=== PATIENT | female | born 1945 | race Two or more races ===

== ENCOUNTER 2018-01-05 11:43 | Emergency (ER) | payer MEDICARE, MEDICAID ==
[~2018-01-05] VITALS: Ht 152.4 cm; Wt 72.6 kg
[2018-01-05] MEDS ORDERED: LOSA50TA21 PO (11:53)
[2018-01-05] MEDS ORDERED: ONDANSETRON ODT 4 MG TAB.RAPDIS SL ONE (12:00)
[2018-01-05] MEDS ORDERED: MORPHINE SULFATE 2 MG/1 ML DISP.SYRIN IV ONE (12:00)
[2018-01-05] MEDS ORDERED: MORPHINE SULFATE 2 MG/1 ML DISP.SYRIN ONE (12:05)
[2018-01-05] MEDS ORDERED: ONDANSETRON 4 MG/2 ML VIAL ONE (12:05)
[2018-01-05 12:11] LABS: BASOPHILS # (AUTO) 0.1 K/uL (0.0-8.0); BASOPHILS % (AUTO) 0.5 % (0.0-2.0); EOSINOPHILS % (AUTO) 0.2 % (0.0-7.0); HEMATOCRIT 37.9 % (31.2-41.9); HEMOGLOBIN 12.7 g/dL (10.9-14.3); LYMPHOCYTES # (AUTO) 2.5 K/uL (20.0-40.0); LYMPHOCYTES % (AUTO) 23.6 % (20.5-51.5); MEAN CORPUSCULAR HEMOGLOBIN 29.3 uug (24.7-32.8); MEAN CORPUSCULAR HGB CONC 34 g/dL (32.3-35.6); MEAN CORPUSCULAR VOLUME 87.3 fL (75.5-95.3); MONOCYTES # (AUTO) 1.3 K/uL (2.0-10.0); MONOCYTES % (AUTO) 12.6 % (0.0-11.0); NEUTROPHILS # (AUTO) 6.6 K/uL (1.8-8.9); NEUTROPHILS % (AUTO) 63.1 % (38.5-71.5); PLATELET COUNT (AUTO) 175 K/uL (179-408); RED BLOOD CELL COUNT(AUTO) 4.34 MIL/uL (3.63-4.92); WHITE BLOOD COUNT (AUTO) 10.5 K/uL (3.8-11.8)
--- NOTE | 2018-01-05 12:18 | NUR ---
PT IS IN ROOM #1B. DR GILES EVALUATED THE PT.
[2018-01-05 12:31] LABS: BILIRUBIN,DIRECT 0.2 mg/dL (0.0-0.2); BILIRUBIN,TOTAL 0.8 mg/dL (0.2-1.0); TOTAL PROTEIN, SERUM 7.9 g/dL (6.4-8.2)
--- NOTE | 2018-01-05 13:11 | NUR ---
PT WAS D/C TO HOME. D/C INSTRUCTIONS GIVEN TO THE PT.
[2018-01-05 13:12] VITALS: BP 139/81
== END 2018-01-05 13:13 | disposition home or self-care (01) ==
LOC: ER 11:45
DX: M75.31 Calcific tendinitis of right shoulder (principal); R07.89 Other chest pain
CPT/HCPCS: 36415; 71045; 73030; 80048; 80076; 83880; 84484; 85025; 93005; 96374; 99284; J2270; J2405; 70030-TC; A4663

== ENCOUNTER 2018-10-27 22:07 | Inpatient (IN) | payer MEDICARE, MEDICAID ==
[~2018-10-27] VITALS: Ht 162.6 cm; Wt 66.2 kg
[~2018-10-27 22:07] MED LIST: LOSA50TA39 PO
[2018-10-27 22:44] LABS: BASOPHILS % (AUTO) 0.6 % (0.0-2.0); EOSINOPHILS # (AUTO) 0.1 K/uL (0.0-0.7); EOSINOPHILS % (AUTO) 1.3 % (0.0-7.0); HEMATOCRIT 22.8 % (31.2-41.9); HEMOGLOBIN 7.7 g/dL (10.9-14.3); LYMPHOCYTES # (AUTO) 1.5 K/uL (20.0-40.0); LYMPHOCYTES % (AUTO) 21.7 % (20.5-51.5); MEAN CORPUSCULAR HEMOGLOBIN 28.1 uug (24.7-32.8); MEAN CORPUSCULAR HGB CONC 34 g/dL (32.3-35.6); MEAN CORPUSCULAR VOLUME 83.4 fL (75.5-95.3); MONOCYTES # (AUTO) 0.9 K/uL (2.0-10.0); NEUTROPHILS # (AUTO) 4.4 K/uL (1.8-8.9); NEUTROPHILS % (AUTO) 63.4 % (38.5-71.5); PLATELET COUNT (AUTO) 306 K/uL (179-408); RED BLOOD CELL COUNT(AUTO) 2.73 MIL/uL (3.63-4.92)
--- NOTE | 2018-10-27 22:46 | NUR ---
RECTAL EXAM DONE BY TYLOR CHAPERONED BY RN PROVIDED PRIVACY AND SAFETY
[2018-10-27 22:52] LABS: POTASSIUM 3.6 mmol/L (3.5-5.1)
[2018-10-27 23:00] LABS: BILIRUBIN,DIRECT 0.1 mg/dL (0.0-0.2); BILIRUBIN,TOTAL 0.4 mg/dL (0.2-1.0); TOTAL PROTEIN, SERUM 6.8 g/dL (6.4-8.2)
[2018-10-28] VITALS (14 sets, daily range): BP systolic 116–143; BP diastolic 59–81
--- NOTE | 2018-10-28 00:37 | NUR ---
INSTRUCTED TO CALL [facility] DR LEO POLLARD IS DIRECTOR CHILD ABUSE THERAPY WAITING FOR CALL BACK
--- NOTE | 2018-10-28 01:13 | NUR ---
CALL FOR [facility] BED DONE PT WILL BE ADMITTED UNDER DR. LEO POLLARD DX BLOODY STOOL +HEMORRHOID
[2018-10-28] MEDS ORDERED: IRON1TAB96 PO (01:17)
[2018-10-28] MEDS ORDERED: FOLI1TAB16 PO (01:21)
--- NOTE | 2018-10-28 01:40 | NUR ---
HAND OFF AND SBAR GIVEN TO KATIE RN PT TRANSPORTED VIA GURNEY WITH SIDERAILS X2 UP BED AT LOWEST POSITION IV SALINE LOCK TO LEFT DORSAL HAND G20 INTACT
[2018-10-28] MEDS ORDERED: HYDROCODONE/APAP 5-325MG TABLET PO PRN (01:45)
[2018-10-28] MEDS ORDERED: ONDANSETRON 4 MG/2 ML VIAL IV PRN (01:45)
[2018-10-28] MEDS ORDERED: MAGNESIUM HYDROXIDE 30 ML LIQUID UDC PO PRN (01:45)
[2018-10-28] MEDS ORDERED: Z GUARD REMEDY PASTE 57 GM TUBE TOP PRN (01:45)
[2018-10-28] MEDS ORDERED: ACETAMINOPHEN 325 MG TABLET PO PRN (01:45)
--- NOTE | 2018-10-28 02:20 | NUR ---
patient received on reading [facility]. a/ox4. no signs of acute distress. v/s stable. safety and comfort measures provided. IV intact and patent. ID band on. Belongings list completed by ER. will continue plan of care.
[2018-10-28] MEDS: IV NS 1000 ML 1,000 ML IV PRN (02:24)
--- NOTE | 2018-10-28 05:10 | NUR ---
DR LEO POLLARD CALLED BACK ON THE PHONE WITH [facility]
[2018-10-28] MEDS: PANTOPRAZOLE SODIUM 40 MG VIAL IV SCH (08:41)
[2018-10-28] MEDS: LOSARTAN POTASSIUM 50 MG TABLET PO SCH ×2 (08:41→17:19)
[2018-10-28 09:55] LABS: BASOPHILS % (AUTO) 0.8 % (0.0-2.0); EOSINOPHILS # (AUTO) 0.1 K/uL (0.0-0.7); EOSINOPHILS % (AUTO) 1.8 % (0.0-7.0); LYMPHOCYTES # (AUTO) 1.1 K/uL (20.0-40.0); LYMPHOCYTES % (AUTO) 22.5 % (20.5-51.5); MEAN CORPUSCULAR HEMOGLOBIN 27.1 uug (24.7-32.8); MEAN CORPUSCULAR HGB CONC 32 g/dL (32.3-35.6); MEAN CORPUSCULAR VOLUME 83.5 fL (75.5-95.3); MONOCYTES # (AUTO) 0.5 K/uL (2.0-10.0); MONOCYTES % (AUTO) 10.2 % (0.0-11.0); NEUTROPHILS % (AUTO) 64.7 % (38.5-71.5); PLATELET COUNT (AUTO) 258 K/uL (179-408); WHITE BLOOD COUNT (AUTO) 4.7 K/uL (3.8-11.8)
[2018-10-28 09:57] LABS: IRON, SERUM 8 ug/dL (50-175)
[2018-10-28 10:00] LABS: BILIRUBIN,TOTAL 0.4 mg/dL (0.2-1.0); CREATININE 0.9 mg/dL (0.6-1.3); MAGNESIUM 2.1 mg/dL (1.8-2.4); PHOSPHOROUS 2.8 mg/dL (2.5-4.9); POTASSIUM 4.2 mmol/L (3.5-5.1); TOTAL PROTEIN, SERUM 5.8 g/dL (6.4-8.2)
[2018-10-28 10:03] LABS: THYROID STIMULATING HORMONE 3.598 mIU/mL (0.358-3.740)
[2018-10-28 10:05] LABS: RED BLOOD CELL COUNT(AUTO) 2.43 MIL/uL (3.63-4.92)
[2018-10-28 10:10] LABS: HEMATOCRIT 20.3 % (31.2-41.9); HEMOGLOBIN 6.6 g/dL (10.9-14.3)
[2018-10-28 10:21] LABS: BAND % (MANUAL) 1 % (0-10); EOSINOPHILS % (MANUAL) 3 % (0-8); LYMPHOCYTES % (MANUAL) 21 % (20-40); MONOCYTES % (MANUAL) 10 % (2-10); NEUTROPHILS % (MANUAL) 65 % (42-75)
[2018-10-28 13:27] LABS: EOSINOPHILS # (AUTO) 0.1 K/uL (0.0-0.7); MONOCYTES # (AUTO) 0.5 K/uL (2.0-10.0); PLATELET COUNT (AUTO) 265 K/uL (179-408)
[2018-10-28 13:43] LABS: EOSINOPHILS % (AUTO) 1.9 % (0.0-7.0); LYMPHOCYTES % (AUTO) 20.1 % (20.5-51.5); MEAN CORPUSCULAR HEMOGLOBIN 26.4 uug (24.7-32.8); MEAN CORPUSCULAR HGB CONC 32 g/dL (32.3-35.6); MONOCYTES % (AUTO) 10.3 % (0.0-11.0); NEUTROPHILS # (AUTO) 3.5 K/uL (1.8-8.9); NEUTROPHILS % (AUTO) 66.7 % (38.5-71.5); WHITE BLOOD COUNT (AUTO) 5.2 K/uL (3.8-11.8)
[2018-10-28 13:47] LABS: RED BLOOD CELL COUNT(AUTO) 2.49 MIL/uL (3.63-4.92)
[2018-10-28 13:51] LABS: HEMATOCRIT 20.7 % (31.2-41.9); HEMOGLOBIN 6.6 g/dL (10.9-14.3)
[2018-10-28] MEDS ORDERED: GOLYTELY 4000 ML BOTTLE PO ONE (15:45)
[2018-10-28 17:26] LABS: *BILIRUBIN,URIN NEGATIVE (NEGATIVE); *BLOOD, URINE 2+ (NEGATIVE); *COLOR,URINE LIGHT YELLOW (YELLOW); *KETONES,URINE NEGATIVE (NEGATIVE); *UROBILINOGEN,URINE 0.2 E.U./dl (NORMAL); LEUKOCYTE ESTERASE ,URINE TRACE (NEGATIVE); NITRITE, URINE NEGATIVE (NEGATIVE); UGLUCOSE NEGATIVE (NEGATIVE)
[2018-10-28 17:32] LABS: *CLARITY,URINE SLIGHTLY HAZY (CLEAR)
[2018-10-28 17:34] LABS: BACTERIA,URINE FEW /HPF (NONE SEEN); SQUAMOUS EPITHELIAL CELL,UR MODERATE /HPF (NONE SEEN)
[2018-10-28] MEDS ORDERED: MAGNESIUM CITRATE 296 ML BOTTLE PO ONE (17:45)
[2018-10-28] MEDS ORDERED: FLEET ENEMA 133 ML BOTTLE RC ONE (17:45)
[2018-10-29 00:52] LABS: BASOPHILS % (AUTO) 0.2 % (0.0-2.0); EOSINOPHILS # (AUTO) 0.1 K/uL (0.0-0.7); EOSINOPHILS % (AUTO) 2.1 % (0.0-7.0); HEMATOCRIT 26.1 % (31.2-41.9); HEMOGLOBIN 8.6 g/dL (10.9-14.3); LYMPHOCYTES # (AUTO) 1.7 K/uL (20.0-40.0); LYMPHOCYTES % (AUTO) 24.5 % (20.5-51.5); MEAN CORPUSCULAR HEMOGLOBIN 27.3 uug (24.7-32.8); MEAN CORPUSCULAR HGB CONC 33 g/dL (32.3-35.6); MONOCYTES # (AUTO) 0.8 K/uL (2.0-10.0); MONOCYTES % (AUTO) 12.1 % (0.0-11.0); NEUTROPHILS # (AUTO) 4.2 K/uL (1.8-8.9); NEUTROPHILS % (AUTO) 61.1 % (38.5-71.5); PLATELET COUNT (AUTO) 274 K/uL (179-408); RED BLOOD CELL COUNT(AUTO) 3.15 MIL/uL (3.63-4.92); WHITE BLOOD COUNT (AUTO) 6.8 K/uL (3.8-11.8)
--- NOTE | 2018-10-29 04:58 | NUR ---
patient received at beginning of shift with 1 unit of blood transfusing. transfusion completed with no adverse reactions. lungs clear and v/s stable. consent for EGD and coloscopy signed. Peg administered and tolerated well. safety and comfort measures provided at all times. no signs of acute distress and v/s stable at this time. will continue to monitor and endorse care accordingly to morning nurse.
[2018-10-29 05:04] VITALS: BP 129/81
[2018-10-29] MEDS: IV NS 1000 ML 1,000 ML IV PRN ×2 (05:10→15:51)
[2018-10-29 06:44] LABS: BASOPHILS % (AUTO) 0.6 % (0.0-2.0); EOSINOPHILS # (AUTO) 0.1 K/uL (0.0-0.7); EOSINOPHILS % (AUTO) 1.1 % (0.0-7.0); HEMATOCRIT 24.6 % (31.2-41.9); LYMPHOCYTES # (AUTO) 1.5 K/uL (20.0-40.0); LYMPHOCYTES % (AUTO) 19.4 % (20.5-51.5); MEAN CORPUSCULAR HEMOGLOBIN 27.4 uug (24.7-32.8); MEAN CORPUSCULAR HGB CONC 33 g/dL (32.3-35.6); MEAN CORPUSCULAR VOLUME 83.8 fL (75.5-95.3); MONOCYTES # (AUTO) 0.8 K/uL (2.0-10.0); NEUTROPHILS # (AUTO) 5.2 K/uL (1.8-8.9); NEUTROPHILS % (AUTO) 68.9 % (38.5-71.5); PLATELET COUNT (AUTO) 264 K/uL (179-408); RED BLOOD CELL COUNT(AUTO) 2.94 MIL/uL (3.63-4.92); WHITE BLOOD COUNT (AUTO) 7.5 K/uL (3.8-11.8)
[2018-10-29 07:03] LABS: PHOSPHOROUS 2.8 mg/dL (2.5-4.9); POTASSIUM 4.3 mmol/L (3.5-5.1)
[2018-10-29] MEDS: LOSARTAN POTASSIUM 50 MG TABLET PO SCH ×2 (08:24→17:04)
[2018-10-29] MEDS: PANTOPRAZOLE SODIUM 40 MG VIAL IV SCH (08:24)
[2018-10-29 11:18] VITALS: BP 118/78
--- NOTE | 2018-10-29 12:04 | NUR ---
Report given to RN from preop, patient picked up from room and taken to OR.
--- NOTE | 2018-10-29 13:29 | NUR ---
Received patient accompanied by Geri NEAL. Entered orders under [place] for Cardiac diet, will continue to carry out other orders. Patient alert and oriented, ambulatory.
[2018-10-29] MEDS ORDERED: SIMETHICONE 40 MG/0.6 ML, 30ML BOTTLE MC ONE (14:44)
[2018-10-29] MEDS ORDERED: LIDOCAINE-MPF 2% 5 ML VIAL IJ ONE (14:44)
[2018-10-29] MEDS ORDERED: PROPOFOL 200 MG/20 ML BOTTLE IV ONE (14:44)
[2018-10-29] MEDS ORDERED: IRR STERIL WATER FOR IRR 1000 ML BOTTLE IR ONE (14:44)
[2018-10-29 16:01] VITALS: BP 112/54
--- NOTE | 2018-10-29 17:26 | NUR ---
Patient alert and oriented, no distress noted or complaints of pain. Patient had EGD and colonoscopy done today. Refer to notes for findings. Findings discussed with family at bedside by Akosua Coffey OFFICE CLERK ROUTINE. Plan is for patient to stay over night to monitor H&H, currently stable. Hgb 8.0 Hct 24.6, will redraw CBC tomorrow morning. On continuous IV fluids. Patient resumed on cardiac diet post procedure. No signs of further bleeding. Patient ambulatory, bathroom privilege with standby assist.
[2018-10-29 20:00] VITALS: BP 109/59
--- NOTE | 2018-10-29 20:00 | NUR ---
PATIENT AWAKE IN BED. A/O X4. IRISH SPEAKING BUT ABLE TO MAKE NEEDS KNOWN. DENIES PAIN OR DISCOMFORT. NO RESP. DISTRESS NOTED. IVF INFUSING WELL. VSS. CALL LIGHT IN REACH. ALL NEEDS ATTENDED, WILL CONTINUE TO MONITOR AND ASSESS.
[2018-10-29] MEDS: HYDROCORTISONE RECTAL SUPP 25 MG EACH RC SCH (20:21)
[2018-10-30] MEDS: IV NS 1000 ML 1,000 ML IV PRN ×2 (05:22→21:53)
[2018-10-30 05:45] VITALS: BP 150/63
--- NOTE | 2018-10-30 05:57 | NUR ---
PATIENT AWAKE, WATCHING TV IN BED. SLEPT WELL THROUGHOUT THE NIGHT. DENIES ANY PAIN OR DISCOMFORT. IVF INFUSING WELL. CALL LIGHT IN REACH. ALL NEEDS ATTENDED, WILL CONTINUE TO MONITOR AND ASSESS.
[2018-10-30 06:14] LABS: BASOPHILS % (AUTO) 0.7 % (0.0-2.0); EOSINOPHILS # (AUTO) 0.2 K/uL (0.0-0.7); EOSINOPHILS % (AUTO) 3.4 % (0.0-7.0); HEMATOCRIT 22.6 % (31.2-41.9); HEMOGLOBIN 7.5 g/dL (10.9-14.3); LYMPHOCYTES # (AUTO) 1.4 K/uL (20.0-40.0); LYMPHOCYTES % (AUTO) 24.6 % (20.5-51.5); MEAN CORPUSCULAR HEMOGLOBIN 27.8 uug (24.7-32.8); MEAN CORPUSCULAR HGB CONC 33 g/dL (32.3-35.6); MEAN CORPUSCULAR VOLUME 83.4 fL (75.5-95.3); MONOCYTES # (AUTO) 0.6 K/uL (2.0-10.0); MONOCYTES % (AUTO) 10.1 % (0.0-11.0); NEUTROPHILS # (AUTO) 3.4 K/uL (1.8-8.9); NEUTROPHILS % (AUTO) 61.2 % (38.5-71.5); PLATELET COUNT (AUTO) 233 K/uL (179-408); RED BLOOD CELL COUNT(AUTO) 2.71 MIL/uL (3.63-4.92); WHITE BLOOD COUNT (AUTO) 5.6 K/uL (3.8-11.8)
[2018-10-30 06:28] LABS: CREATININE 0.9 mg/dL (0.6-1.3); MAGNESIUM 1.8 mg/dL (1.8-2.4); PHOSPHOROUS 3.4 mg/dL (2.5-4.9); POTASSIUM 4.2 mmol/L (3.5-5.1)
--- NOTE | 2018-10-30 07:20 | NUR ---
Received patient resting in bed. No acute distress noted at this time. bed in lowest position, call light within reach, side rails up x2. will continue to monitor.
[2018-10-30] MEDS: PANTOPRAZOLE SODIUM 40 MG VIAL IV SCH (09:31)
[2018-10-30] MEDS: LOSARTAN POTASSIUM 50 MG TABLET PO SCH ×2 (09:32→17:08)
[2018-10-30] MEDS: HYDROCORTISONE RECTAL SUPP 25 MG EACH RC SCH ×2 (09:32→21:45)
[2018-10-30 11:24] VITALS: BP 149/74
[2018-10-30] MEDS: SOD FERRIC GLUC COMPLX/SUCROSE 125 MG in IV NORMAL SALINE 100 ML IV SCH (14:08)
[2018-10-30 15:33] VITALS: BP 127/72
--- NOTE | 2018-10-30 18:28 | NUR ---
PATIENT RESTED THROUGHOUT DAY. PATIENT DENIES ANY PAIN AND DISCOMFORT. NO ACUTE DISTRESS NOTED. SAFETY MEASURES PROVIDED.
[2018-10-30 22:41] VITALS: BP 99/69
[2018-10-31 06:32] LABS: BASOPHILS % (AUTO) 0.7 % (0.0-2.0); EOSINOPHILS # (AUTO) 0.1 K/uL (0.0-0.7); EOSINOPHILS % (AUTO) 1.8 % (0.0-7.0); HEMATOCRIT 22.2 % (31.2-41.9); HEMOGLOBIN 7.6 g/dL (10.9-14.3); LYMPHOCYTES % (AUTO) 16.8 % (20.5-51.5); MEAN CORPUSCULAR HEMOGLOBIN 28.6 uug (24.7-32.8); MEAN CORPUSCULAR HGB CONC 34 g/dL (32.3-35.6); MEAN CORPUSCULAR VOLUME 83.9 fL (75.5-95.3); MONOCYTES # (AUTO) 0.5 K/uL (2.0-10.0); MONOCYTES % (AUTO) 8.5 % (0.0-11.0); NEUTROPHILS # (AUTO) 4.4 K/uL (1.8-8.9); NEUTROPHILS % (AUTO) 72.2 % (38.5-71.5); PLATELET COUNT (AUTO) 226 K/uL (179-408); RED BLOOD CELL COUNT(AUTO) 2.65 MIL/uL (3.63-4.92); WHITE BLOOD COUNT (AUTO) 6.1 K/uL (3.8-11.8)
[2018-10-31 06:42] VITALS: BP 139/67
[2018-10-31 06:49] LABS: CARBON DIOXIDE 27 mmol/L (21-32); CHLORIDE 111 mmol/L (98-107); GLUCOSE 94 mg/dL (74-106); POTASSIUM 4.1 mmol/L (3.5-5.1); UREA NITROGEN, BLOOD 10 mg/dL (7-18)
--- NOTE | 2018-10-31 07:45 | NUR ---
Received patient resting in bed. Displays no sign of distress at the moment. Safety precautions in place. Bed locked in lowest position and 2 side rails up. Call light within reach. Will continue to monitor.
[2018-10-31 08:00] VITALS: BP 142/61
[2018-10-31] MEDS: LOSARTAN POTASSIUM 50 MG TABLET PO SCH (08:36)
[2018-10-31] MEDS: PANTOPRAZOLE SODIUM 40 MG VIAL IV SCH (08:37)
[2018-10-31] MEDS: HYDROCORTISONE RECTAL SUPP 25 MG EACH RC SCH (08:37)
[2018-10-31] MEDS ORDERED: FERR325T28 PO (10:43)
[2018-10-31] MEDS ORDERED: PANT40TA4 PO (10:46)
[2018-10-31 11:28] VITALS: BP 143/74
[2018-10-31] MEDS: SOD FERRIC GLUC COMPLX/SUCROSE 125 MG in IV NORMAL SALINE 100 ML IV SCH (14:15)
[2018-10-31 15:21] VITALS: BP 124/66
--- NOTE | 2018-10-31 15:45 | NUR ---
D/C'D PATIENT. REVIEWED D/C INSTRUCTIONS WITH PATIENT AND DAUGHTERS. PATIENT VERBALIZES UNDERSTANDING OF DISCHARGE INSTRUCTIONS. PRESCRIPTION GIVEN TO PATIENT. REMOVED IV, HELPED PATIENT GET DRESSED, AND ESCORTED PATIENT DOWN IN A WHEELCHAIR WITH NO COMPLICATIONS.
[2018-11-01] MEDS ORDERED: PANTOPRAZOLE SODIUM 40 MG TABLET.DR PO SCH (07:00)
== END 2018-10-31 14:45 | disposition home or self-care (01) | DRG 394 ==
LOC: ER 22:12 → MEDSURG3 10-28 01:44
PROVIDERS: ATTEND Nurse Practitioner Acute Care
PROC: 30233N1 Transfusion of Nonautologous Red Blood Cells into Peripheral Vein, Percutaneous Approach (ICD-10-PCS; principal; 2018-10-28)
PROC: 0DB68ZX Excision of Stomach, Via Natural or Artificial Opening Endoscopic, Diagnostic (ICD-10-PCS; 2018-10-28)
PROC: 0DJD8ZZ Inspection of Lower Intestinal Tract, Via Natural or Artificial Opening Endoscopic (ICD-10-PCS; 2018-10-28)
DX: K64.8 Other hemorrhoids (principal); D62 Acute posthemorrhagic anemia; E44.0 Moderate protein-calorie malnutrition; K64.4 Residual hemorrhoidal skin tags; K29.70 Gastritis, unspecified, without bleeding; K44.9 Diaphragmatic hernia without obstruction or gangrene; E61.1 Iron deficiency; K59.00 Constipation, unspecified; I10 Essential (primary) hypertension
CPT/HCPCS: 36415; 83550; 83690; 83735; 84100; 84443; 85025; 86850; 86900; 86901; 86920; 87086; 88342; A4217; A4663; C9113; G0378; J2916; J3490; J7030; P9016-BL; P9021